=== PATIENT | female | born 1975 | race Caucasian/White ===

== ENCOUNTER 2022-09-09 12:46 | Emergency (ER) | payer MEDICARE ==
[~2022-09-09] VITALS: Ht 160 cm; Wt 75.5 kg
[2022-09-09 13:42] VITALS: BP 106/56; PULSE 100; TEMP 98
[2022-09-09] MEDS ORDERED: PERCOCET 325 MG1 TA2 PO (13:46)
== END 2022-09-09 14:00 | disposition home or self-care (01) ==
LOC: COL.ER 12:46
DX: K62.3 Rectal prolapse (principal); K59.00 Constipation, unspecified; I12.9 Hypertensive chronic kidney disease with stage 1 through stage 4 chronic kidney disease, or unspecified chronic kidney disease; N18.9 Chronic kidney disease, unspecified; Z88.5 Allergy status to narcotic agent; Z99.2 Dependence on renal dialysis